=== PATIENT | male | born 1995 | race Two or more races ===

== ENCOUNTER 2019-02-15 19:18 | Inpatient (IN) | payer OTHER, SELFPAY ==
[~2019-02-15] VITALS: Ht 172.7 cm; Wt 92.4 kg
[2019-02-15] MEDS ORDERED: SODIUM CHLORIDE 0.9% 1,000 ML IV ONE ×2 (19:52→21:04)
[2019-02-15] MEDS ORDERED: LORazepam 2 MG/ML, 1ML IVPush PRN (20:00)
[2019-02-15] MEDS ORDERED: SODIUM CHLORIDE 0.9% 1,000ML IVBOLUS ONE (20:00)
[2019-02-15] MEDS ORDERED: ONDANSETRON 2MG/ML, 2ML IVPush ONE (20:00)
[2019-02-15] MEDS ORDERED: SODIUM CHLORIDE FLUSH 10ML SYR IVF ONE (20:00)
--- NOTE | 2019-02-15 20:02 | NUR ---
THIS IS A 23 Y/O MALE WHO ARRIVES TO THE ED WITH C/O OF SEVRE ABD PAIN AND BLEEDING FROM RECTUM AND IN EPISODES OF EMESIS. PT DENIES TRUAMA. PT DOES REPORT HEAVY DRINKING AND TAKING AT LEAST 1 PINT MINIMUM. PT ON ARRIVAL HAD PIV PLACED AND CONNECTED TO MONITORS AND CALL LIGHT IN REACH. PT HAS NO DT SIGNS AT THIS TIME. AWAITING FURTHER ORDERS. IVF BOLUS GOING.
[2019-02-15 20:30] LABS: BASOPHILS # (AUTO) 0.02 x10^3/uL (0-0.1); BASOPHILS % (AUTO) 0 % (0-1); EOSINOPHILS % (AUTO) 1 % (1-7); LYMPHOCYTES # (AUTO) 2.58 x10^3/uL (1-3.4); LYMPHOCYTES % (AUTO) 29 % (22-44); MD NO; MEAN CORPUSCULAR HEMOGLOBIN 31.6 pg (27.5-34.5); MEAN CORPUSCULAR VOLUME 93.1 fL (81-97); MEAN PLATELET VOLUME 8.3 fL (7.4-10.4); MONOCYTES % (AUTO) 7 % (2-9); NEUTROPHILS # (AUTO) 5.74 x10^3/uL (1.8-6.8); NEUTROPHILS % (AUTO) 63 % (42-75); PLATELET COUNT 305 x10^3/uL (130-400); RED BLOOD COUNT 4.99 x10^6/uL (4.38-5.82); RED CELL DISTRIBUTION WIDTH 14.6 % (9.4-14.8)
[2019-02-15 20:38] LABS: ALANINE AMINOTRANSFERASE 202 U/L (12-78); ALBUMIN 4.1 g/dL (3.4-5.0); ANION GAP 12 mmol/L (5-15); CALCIUM 8.9 mg/dL (8.5-10.1); CHLORIDE 108 mmol/L (98-107); CREATININE 0.95 mg/dL (0.7-1.3)
[2019-02-15 20:41] LABS: ALKALINE PHOSPHATASE 89 U/L (45-117); BILIRUBIN,TOTAL 0.7 mg/dL (0.2-1.0); TOTAL PROTEIN 8.5 g/dL (6.4-8.2)
[2019-02-15] MEDS ORDERED: LORazepam 2 MG/ML, 1ML ONE (20:41)
[2019-02-15] MEDS ORDERED: ONDANSETRON 2MG/ML, 2ML ONE (20:41)
[2019-02-15] MEDS ORDERED: SODIUM CHLORIDE FLUSH 10ML SYR IVF PRN (21:30)
--- NOTE | 2019-02-15 21:32 | NUR ---
REPORT TO WILFRIDO
[2019-02-15 21:58] VITALS: BP 123/86
[2019-02-16] MEDS ORDERED: MVI ADULT 10 ML, FOLIC ACID 1 MG in D5%-0.45% NACL 1,000 ML IV SCH ×2 (00:15→11:30)
[2019-02-16] MEDS ORDERED: ONDANSETRON 2MG/ML, 2ML IV PRN (00:30)
[2019-02-16] MEDS ORDERED: ALUMINUM/MAG/SIMETHICONE 30 ML UDC PO PRN (00:30)
[2019-02-16] MEDS ORDERED: LORazepam 2 MG/ML, 1ML IV PRN ×4 (00:30)
[2019-02-16 02:50] VITALS: BP 129/88
[2019-02-16 06:47] VITALS: BP 143/83
[2019-02-16] MEDS: MULTIVITAMINS/MINERALS TABLET PO SCH (08:20)
[2019-02-16] MEDS: LORazepam 2 MG/ML, 1ML IV PRN ×2 (10:14→20:03)
[2019-02-16 12:31] VITALS: BP 126/80
[2019-02-16] MEDS: THIAMINE 100MG TABLET PO SCH (12:38)
[2019-02-16 13:21] LABS: BASOPHILS # (AUTO) 0.06 x10^3/uL (0-0.1); BASOPHILS % (AUTO) 1 % (0-1); EOSINOPHILS % (AUTO) 1 % (1-7); LYMPHOCYTES # (AUTO) 2.47 x10^3/uL (1-3.4); LYMPHOCYTES % (AUTO) 29 % (22-44); MD NO; MEAN CORPUSCULAR HEMOGLOBIN 30.7 pg (27.5-34.5); MEAN CORPUSCULAR HGB CONC 33.8 g/dL (33.2-36.2); MEAN CORPUSCULAR VOLUME 90.8 fL (81-97); MEAN PLATELET VOLUME 7.2 fL (7.4-10.4); MONOCYTES % (AUTO) 8 % (2-9); NEUTROPHILS # (AUTO) 5.29 x10^3/uL (1.8-6.8); NEUTROPHILS % (AUTO) 61 % (42-75); PLATELET COUNT 253 x10^3/uL (130-400); RED BLOOD COUNT 4.51 x10^6/uL (4.38-5.82); RED CELL DISTRIBUTION WIDTH 13.8 % (9.4-14.8)
[2019-02-16] MEDS: D5%-0.9% NACL 1,000 ML IV SCH ×2 (13:25→21:43)
[2019-02-16 13:33] LABS: ALANINE AMINOTRANSFERASE 168 U/L (12-78); ALBUMIN 3.5 g/dL (3.4-5.0); ANION GAP 10 mmol/L (5-15); CHLORIDE 106 mmol/L (98-107); CREATININE 0.87 mg/dL (0.7-1.3)
[2019-02-16 13:35] LABS: ALKALINE PHOSPHATASE 78 U/L (45-117); BILIRUBIN,TOTAL 1.2 mg/dL (0.2-1.0); TOTAL PROTEIN 7.3 g/dL (6.4-8.2)
[2019-02-16 19:36] VITALS: BP 155/91
[2019-02-17 01:47] VITALS: BP 138/89
[2019-02-17] MEDS: D5%-0.9% NACL 1,000 ML IV SCH (05:47)
[2019-02-17] MEDS ORDERED: PANTOPROZOLE 40MG TABLET PO SCH (06:00)
[2019-02-17 06:20] LABS: BASOPHILS # (AUTO) 0.04 x10^3/uL (0-0.1); BASOPHILS % (AUTO) 1 % (0-1); EOSINOPHILS # (AUTO) 0.16 x10^3/uL (0-0.4); EOSINOPHILS % (AUTO) 2 % (1-7); LYMPHOCYTES # (AUTO) 2.35 x10^3/uL (1-3.4); LYMPHOCYTES % (AUTO) 33 % (22-44); MD NO; MEAN CORPUSCULAR HGB CONC 33.8 g/dL (33.2-36.2); MEAN CORPUSCULAR VOLUME 91.8 fL (81-97); MEAN PLATELET VOLUME 7.4 fL (7.4-10.4); MONOCYTES # (AUTO) 0.72 x10^3/uL (0.2-0.8); MONOCYTES % (AUTO) 10 % (2-9); NEUTROPHILS # (AUTO) 3.94 x10^3/uL (1.8-6.8); NEUTROPHILS % (AUTO) 55 % (42-75); PLATELET COUNT 233 x10^3/uL (130-400); RED BLOOD COUNT 4.34 x10^6/uL (4.38-5.82); RED CELL DISTRIBUTION WIDTH 14.4 % (9.4-14.8)
[2019-02-17 06:30] LABS: ANION GAP 9 mmol/L (5-15); CALCIUM 8.8 mg/dL (8.5-10.1); CHLORIDE 108 mmol/L (98-107)
[2019-02-17 06:32] LABS: CREATININE 0.87 mg/dL (0.7-1.3)
[2019-02-17 07:40] VITALS: BP 125/89
[2019-02-17] MEDS: THIAMINE 100MG TABLET PO SCH (09:22)
[2019-02-17] MEDS: MULTIVITAMINS/MINERALS TABLET PO SCH (09:22)
[2019-02-17] MEDS ORDERED: POTASSIUM CHLORIDE 20 MEQ TAB.ER.PRT PO ONE (11:00)
[2019-02-17 11:57] LABS: ALBUMIN 3.3 g/dL (3.4-5.0); BILIRUBIN, DIRECT 0.3 mg/dL (0.1-0.2)
[2019-02-17 12:00] LABS: BILIRUBIN,INDIRECT 0.9 mg/dL (0.0-2.0); BILIRUBIN,TOTAL 1.2 mg/dL (0.2-1.0); TOTAL PROTEIN 6.8 g/dL (6.4-8.2)
[2019-02-17 12:55] LABS: MICROSCOPIC NOT IND
[2019-02-17 13:01] LABS: CULTURE INDICATED? NO
[2019-02-17 13:07] VITALS: BP 138/88
[2019-02-17] MEDS ORDERED: THIA100T67 PO (15:57)
[2019-02-17] MEDS ORDERED: MULT-484 PO (15:57)
[2019-02-17] MEDS ORDERED: FOLI-17 PO (15:57)
[2019-02-17] MEDS ORDERED: PANT40TA5 PO (15:57)
== END 2019-02-17 17:15 | disposition home or self-care (01) | DRG 432 ==
LOC: ED 21:37 → EDIP 21:40 → 4EST 22:00 → DCLOUNGE 02-17 17:05
PROVIDERS: ADMIT Family Medicine; ATTEND Family Medicine
DX: K70.10 Alcoholic hepatitis without ascites (principal); K85.20 Alcohol induced acute pancreatitis without necrosis or infection; F10.239 Alcohol dependence with withdrawal, unspecified; K92.0 Hematemesis; K29.20 Alcoholic gastritis without bleeding; E87.6 Hypokalemia; F10.229 Alcohol dependence with intoxication, unspecified; F12.90 Cannabis use, unspecified, uncomplicated; K76.0 Fatty (change of) liver, not elsewhere classified; Y90.8 Blood alcohol level of 240 mg/100 ml or more; Z83.3 Family history of diabetes mellitus
CPT/HCPCS: 36415; 96360; 99285; J7042; 76700; 80048; 80053; 80076; 80307; 81003; 83690; 83735; 85025; 93005; G0378; J2060; J7030

== ENCOUNTER 2021-04-05 06:32 | Inpatient (IN) | payer OTHER ==
[~2021-04-05] VITALS: Ht 170.2 cm; Wt 96.1 kg
[~2021-04-05 06:32] MED LIST: FOLI1TAB32 PO; MULT-484 PO; PANT40TA6 PO; THIA100T67 PO
--- NOTE | 2021-04-05 08:49 | NUR ---
COMMUNICATION PROFESSOR: PT TO ROOM FROM LOBBY
[2021-04-05 08:55] LABS: BASOPHILS % (AUTO) 0 % (0-1); EOSINOPHILS % (AUTO) 0 % (1-7); LYMPHOCYTES % (AUTO) 7 % (22-44); MEAN CORPUSCULAR HEMOGLOBIN 32.7 pg (27.5-34.5); MEAN CORPUSCULAR HGB CONC 34.9 g/dL (33.2-36.2); MONOCYTES % (AUTO) 6 % (2-9); NEUTROPHILS % (AUTO) 87 % (42-75); PLATELET COUNT 257 x10^3/uL (130-400); RED BLOOD COUNT 5.34 x10^6/uL (4.38-5.82); RED CELL DISTRIBUTION WIDTH 13.7 % (9.4-14.8)
[2021-04-05 09:06] LABS: ALBUMIN 3.8 g/dL (3.4-5.0); ANION GAP 22 mmol/L (5-15); CALCIUM 8.8 mg/dL (8.5-10.1); CHLORIDE 100 mmol/L (98-107)
[2021-04-05 09:11] LABS: ALANINE AMINOTRANSFERASE 137 U/L (12-78); ALKALINE PHOSPHATASE 83 U/L (45-117); BILIRUBIN,TOTAL 0.7 mg/dL (0.2-1.0); CREATININE 0.81 mg/dL (0.7-1.3); TOTAL PROTEIN 7.6 g/dL (6.4-8.2)
[2021-04-05] MEDS ORDERED: MORPHINE SULFATE 4 MG/ML, 1ML ONE ×2 (09:14→10:04)
[2021-04-05] MEDS ORDERED: MAALOX/HYOSCYAMINE/LIDOCAINE 45 ML BTL ONE (09:14)
[2021-04-05] MEDS ORDERED: ONDANSETRON 2MG/ML, 2ML ONE (09:14)
[2021-04-05] MEDS: MORPHINE SULFATE 4 MG/ML, 1ML IVPush PRN ×4 (09:15→20:59)
--- NOTE | 2021-04-05 09:19 | NUR ---
IV PLACED NOTED. PT MEDICATED PER ERP FOR 10/10 ABD PAIN AND NAUSEA. VSS. CALL LIGHT IN REACH. FALL PRECAUTIONS IN PLACE. SIDE RAILS UPX2.
[2021-04-05] MEDS ORDERED: SODIUM CHLORIDE 0.9% 1,000ML IVBOLUS ONE (09:30)
[2021-04-05] MEDS ORDERED: MAALOX/HYOSCYAMINE/LIDOCAINE 45 ML BTL PO ONE (09:30)
[2021-04-05] MEDS ORDERED: SODIUM CHLORIDE FLUSH 10ML SYR IVF ONE (09:30)
[2021-04-05] MEDS ORDERED: ONDANSETRON 2MG/ML, 2ML IVPush ONE (09:30)
--- NOTE | 2021-04-05 09:30 | NUR ---
PT SLEEPING, RESP REGULAR AND UNLABORED, PULSE OX 95% RA. PT REPORTS PAIN "BETTER, MUCH MORE COMFORTABLE, STILL FEEL IT SOME." VSS. RATES PAIN 4-5/10. REFUSES NEED FOR ADDITIONAL PAIN MEDICATION AT THIS TIME. CALL LIGHT IN REACH, FALL PRECAUTIONS IN PLACE
[2021-04-05 09:35] LABS: MICROSCOPIC INDICATED
[2021-04-05] MEDS ORDERED: SODIUM CHLORIDE 0.9% 1,000 ML IV ONE (09:43)
--- NOTE | 2021-04-05 09:48 | NUR ---
LATE ENTRY 0900: ASSUMED CARE OF PT AT THIS TIME FROM [facility]. AMBULATORY TO ROOM WITH STEADY GAIT. 25 Y/O M PRESENTS STATING "WOKE UP THIS MORNING WITH SHARP CONSTANT STOMACH PAIN, THREW UP A FEW TIMES, HURTS SO BAD." DENIES CP, SOB, DIARRHEA, FEVER, CHILLS, COUGH. PT PROVIDED CLEAN CATCH UA SAMPLE IN [facility], COLLECTED AND SENT TO LAB. DR. MOLINA AT BEDSIDE FOR EVALUATION,AWAITING ORDERS. CONT PULSE OX, BP MONITORS APPLIED. VSS. CALL LIGHT IN REACH. FALL PRECAUTIONS IN PLACE. A&OX4. ASSESSMENT COMPLETED.
--- NOTE | 2021-04-05 09:59 | NUR ---
DR. MOLINA AT BEDSIDE FOR RECHECK, PT REPORTS "PAIN IS HORRIBLE AGAIN, I NEED MORE MEDICATION." TO BE ADMITTED PER ERP, PT VERBALIZED UNDERSTANDING AND AGREES TO POC.
--- NOTE | 2021-04-05 10:13 | NUR ---
PT MEDICATED NOTED IN [facility] PER ERP DR. MOLINA FOR 10 ABD PAIN. REPORTS NAUSEA RESOLVED. VSS. DENIES NEED TO USE RESTROOM. LIGHTS DIMMED FOR COMFORT PER REQUEST. FALL PRECAUTIONS AND CALL LIGHT IN REACH. AWAITING ROOM ASSIGNMENT ON FLOOR,
--- NOTE | 2021-04-05 10:30 | NUR ---
PT SLEEPING, RESP REGULAR AND UNLABORED, VERY DROWSY, AROUSES TO VOICE. REPORTS PAIN CONTROLLED "FOR NOW, IT'S GOOD, BARELY FEEL IT, CAN'T RATE IT." VSS. CALL LIGHT IN REACH. FALL PRECAUTIONS IN PLACE.
[2021-04-05] MEDS ORDERED: KETOROLAC 30 MG/1 ML ONE (10:46)
--- NOTE | 2021-04-05 10:47 | NUR ---
PT CALLING [facility]US[facility] LIGHT, REQUESTING "MORE PAIN MEDICINE, IT HELPS FOR A LITTLE BIT BUT THEN THE PAIN IS BACK, I NEED MORE MEDICINE." DISCUSSED PAIN WITH DR. MOLINA, VERBAL ORDER TO GIVE 30MG TORADOL IV ONCE PER DR. MOLINA, RBVO WITH MD. SHI. CALL LIGHT IN REACH. FALL PRECAUTIONS IN PLACE
--- NOTE | 2021-04-05 11:11 | NUR ---
THROUGHPUT RN NOTE: REPORT GIVEN TO RECEIVING RN [facility] RN IS CURRENTLY ON BREAK. PT AWAITING TRANSPORT TO MEDICAL FLOOR.
[2021-04-05] MEDS ORDERED: KETOROLAC 30 MG/1 ML IVPush ONE (11:13)
--- NOTE | 2021-04-05 11:33 | NUR ---
REPORT AND CARE BACK OF PT AT THIS TIME. PT MEDICATED NOTED IN [facility] PER DR. MOLINA FOR 10/10 PAIN IN ABD, VSS. CALL LIGHT IN REACH. FALL PRECAUTIONS IN PLACE. ROOM RECEIVED ON FLOOR, GLORIA DRIVER GAVE VERBAL REPORT. PT READY FOR TRANSPORT.
--- NOTE | 2021-04-05 12:00 | NUR ---
PT SLEEPING, RESP REGULAR AND UNLABORED. PULSE 94% RA. VSS. CALL LIGHT IN REACH. FALL PRECAUTIONS IN PLACE. AWAITING TRANSPORT TO FLOOR.
[2021-04-05] MEDS ORDERED: ONDANSETRON ODT 4 MG PO PRN (14:30)
[2021-04-05] MEDS ORDERED: POLYETHYLENE GLYCOL 17 GM PACKET PO PRN (14:30)
[2021-04-05] MEDS ORDERED: ONDANSETRON 2MG/ML, 2ML IVPush PRN (14:30)
[2021-04-05] MEDS ORDERED: DOCUSATE 100 MG CAPSULE PO PRN (14:30)
[2021-04-05] MEDS ORDERED: BISACODYL 10 MG SUPP PR PRN (14:30)
[2021-04-05] MEDS: ONDANSETRON 2MG/ML, 2ML IVPush PRN ×2 (14:35→19:54)
[2021-04-05] MEDS ORDERED: LORazepam 2 MG/ML, 1ML IV PRN ×3 (15:00)
[2021-04-05] MEDS ORDERED: THIAMINE 200 MG in DEXTROSE 5% 50 ML IVPB ONE (15:00)
[2021-04-05] MEDS ORDERED: ACETAMINOPHEN 325 MG TABLET PO PRN (15:00)
[2021-04-05] MEDS: LACTATED RINGERS 1,000 ML IV SCH (17:08)
[2021-04-05] MEDS: LORazepam 1MG TABLET PO SCH ×3 (17:08→21:54)
[2021-04-05] MEDS: ENOXAPARIN 40 MG/0.4 ML SQ SCH (17:08)
[2021-04-05] MEDS: morphine SULFATE 10 MG/ML, 1ML IVPush PRN (17:43)
[2021-04-05] MEDS: PROMETHAZINE 25 MG/ML, 1ML IM PRN (17:44)
[2021-04-05 19:19] VITALS: BP 163/116
[2021-04-05] MEDS: hydrALAzine 20 MG/ML, 1ML IVPush PRN (19:54)
[2021-04-05] MEDS ORDERED: OMNIPAQUE 350 MG/ML, 100ML BOTTLE ONE (20:00)
[2021-04-06] VITALS (11 sets, daily range): BP systolic 137–162; BP diastolic 80–119
[2021-04-06] MEDS: MORPHINE SULFATE 4 MG/ML, 1ML IVPush PRN ×5 (00:03→21:30)
[2021-04-06] MEDS: hydrALAzine 20 MG/ML, 1ML IVPush PRN ×2 (00:34→08:54)
[2021-04-06] MEDS ORDERED: HYDROmorphone 2 MG/ML, 1ML IVPush ONE (02:00)
[2021-04-06] MEDS: ONDANSETRON 2MG/ML, 2ML IVPush PRN ×3 (02:05→20:05)
[2021-04-06 04:30] LABS: BASOPHILS % (AUTO) 0 % (0-1); EOSINOPHILS % (AUTO) 0 % (1-7); LYMPHOCYTES % (AUTO) 10 % (22-44); MEAN CORPUSCULAR HEMOGLOBIN 32.8 pg (27.5-34.5); MEAN CORPUSCULAR HGB CONC 34.9 g/dL (33.2-36.2); MEAN PLATELET VOLUME 8.6 fL (7.4-10.4); MONOCYTES % (AUTO) 10 % (2-9); NEUTROPHILS % (AUTO) 80 % (42-75); PLATELET COUNT 195 x10^3/uL (130-400); RED BLOOD COUNT 5.02 x10^6/uL (4.38-5.82); RED CELL DISTRIBUTION WIDTH 13.9 % (9.4-14.8)
[2021-04-06 04:42] LABS: CHLORIDE 99 mmol/L (98-107)
[2021-04-06 04:51] LABS: ALANINE AMINOTRANSFERASE 93 U/L (12-78); ALKALINE PHOSPHATASE 62 U/L (45-117); ANION GAP 10 mmol/L (5-15); BILIRUBIN,TOTAL 1.7 mg/dL (0.2-1.0); CALCIUM 8.3 mg/dL (8.5-10.1); CHOL/HDL RATIO 3.8; CHOLESTEROL, TOTAL 155 mg/dL (140-239); CREATININE 0.86 mg/dL (0.7-1.3); HDL CHOL % 26 % (26-37); HDL CHOLESTEROL (DIRECT) 41 mg/dL (40-60); LDL CHOLESTEROL,CALCULATED 76 mg/dL (54-169); LDL/HDL RATIO 1.9 (0.5-3.0); TOTAL PROTEIN 6.8 g/dL (6.4-8.2); TRIGLYCERIDES 190 mg/dL (50-200); VLDL CHOLESTEROL 38 mg/dL (0-25)
[2021-04-06] MEDS: LACTATED RINGERS 1,000 ML IV SCH (05:59)
[2021-04-06] MEDS: LORazepam 1MG TABLET PO SCH ×4 (05:59→20:05)
[2021-04-06] MEDS ORDERED: MAGNESIUM SULFATE IV ONE (08:30)
[2021-04-06] MEDS ORDERED: SODIUM CHLORIDE 0.9% IV ONE (08:30)
[2021-04-06] MEDS ORDERED: POTASSIUM CHLORIDE IV ONE (08:30)
[2021-04-06] MEDS ORDERED: MAGNESIUM SULFATE PMX 4GM/100M 100 ML IVPB ONE (08:30)
[2021-04-06] MEDS: PANTOPRAZOLE 40 MG IV IVPush SCH (08:52)
[2021-04-06] MEDS: LORazepam 2 MG/ML, 1ML IV PRN (10:33)
[2021-04-06] MEDS ORDERED: CHLORDIAZEPOXIDE 25 MG CAPSULE PO PRN (11:00)
[2021-04-06] MEDS ORDERED: CHLORDIAZEPOXIDE 25 MG CAPSULE PO SCH (11:00)
[2021-04-06 11:27] LABS: O2 FLOW 4L L/min
[2021-04-06] MEDS ORDERED: SODIUM CHLORIDE 0.9% 1,000 ML IV SCH ×2 (12:30)
[2021-04-06] MEDS ORDERED: SODIUM CHLORIDE 0.9% 1,000ML IVBOLUS ONE ×2 (13:30→15:30)
[2021-04-06] MEDS: PIPERACILLIN/TAZO 3.375 GM in DEXTROSE 5% 50 ML IV SCH ×2 (14:12→19:49)
[2021-04-06] MEDS: PROMETHAZINE 25 MG/ML, 1ML IM PRN (14:25)
[2021-04-06] MEDS ORDERED: ACETAMINOPHEN 650 MG SUPP PR PRN (14:30)
[2021-04-06] MEDS: ENOXAPARIN 40 MG/0.4 ML SQ SCH (15:24)
[2021-04-06] MEDS ORDERED: METOPROLOL 1 MG/ML, 5ML IVPush ONE (16:30)
[2021-04-06 20:32] LABS: MICROSCOPIC NOT IND
[2021-04-06] MEDS: ACETAMINOPHEN 325 MG TABLET PO PRN (21:29)
[2021-04-07] MEDS: PROMETHAZINE 25 MG/ML, 1ML IM PRN ×4 (00:26→22:43)
[2021-04-07] MEDS: LORazepam 2 MG/ML, 1ML IV PRN ×4 (00:26→19:34)
[2021-04-07 01:35] VITALS: BP 160/99
[2021-04-07] MEDS: PIPERACILLIN/TAZO 3.375 GM in DEXTROSE 5% 50 ML IV SCH ×4 (02:23→19:33)
[2021-04-07] MEDS: ONDANSETRON 2MG/ML, 2ML IVPush PRN ×3 (02:24→12:39)
[2021-04-07] MEDS: MORPHINE SULFATE 4 MG/ML, 1ML IVPush PRN ×6 (02:24→22:37)
[2021-04-07 05:13] LABS: HCT (SEDRATE) 40.6 % (39.2-51.8)
[2021-04-07 05:16] LABS: ANION GAP 5 mmol/L (5-15); CHLORIDE 102 mmol/L (98-107)
[2021-04-07 05:17] LABS: MEAN CORPUSCULAR HEMOGLOBIN 32.7 pg (27.5-34.5); MEAN CORPUSCULAR HGB CONC 34.8 g/dL (33.2-36.2); MEAN PLATELET VOLUME 8.4 fL (7.4-10.4); PLATELET COUNT 116 x10^3/uL (130-400); RED BLOOD COUNT 4.27 x10^6/uL (4.38-5.82); RED CELL DISTRIBUTION WIDTH 13.4 % (9.4-14.8)
[2021-04-07 05:31] LABS: ALANINE AMINOTRANSFERASE 58 U/L (12-78); ALBUMIN 2.4 g/dL (3.4-5.0); ALKALINE PHOSPHATASE 49 U/L (45-117); CALCIUM 8.1 mg/dL (8.5-10.1); CREATININE 0.69 mg/dL (0.7-1.3); TOTAL PROTEIN 5.8 g/dL (6.4-8.2)
[2021-04-07] MEDS: LORazepam 1MG TABLET PO SCH ×2 (06:04→12:19)
[2021-04-07 06:09] LABS: <PLATELET ESTIMATE> DECREASED; <PLT MORPHOLOGY> NORMAL PLT MORPH; <RBC MORPHOLOGY> NORMAL; BAND#(MANUAL) 0.61 x10^3/uL; BANDS%(MANUAL) 7 % (0-7); BASOS#(MANUAL) 0.09 x10^3/uL (0-0.1); BASOS% (MANUAL) 1 % (0-1); EOS#(MANUAL) 0.09 x10^3/uL (0.0-0.4); EOS% (MANUAL) 1 % (1-7); LYMPH#(MANUAL) 1.48 x10^3/uL (1-3.4); LYMPHS% (MANUAL) 17 % (22-44); MONOS#(MANUAL) 0.87 x10^3/uL (0.3-2.7); MONOS% (MANUAL) 10 % (2-9); REACTIVE LYMPHS # (MANUAL) 0.09 x10^3/uL (0-0); REACTIVE LYMPHS % (MANUAL) 1 % (0-0); SEG#(MANUAL) 5.48 x10^3/uL (1.8-6.8); SEGS% (MANUAL) 63 % (42-75)
[2021-04-07 06:37] VITALS: BP 164/112
[2021-04-07] MEDS: PANTOPRAZOLE 40 MG IV IVPush SCH (07:52)
[2021-04-07] MEDS ORDERED: POTASSIUM CHLORIDE 40 MEQ in SODIUM CHLORIDE 0.9% 500 ML IV ONE (10:00)
[2021-04-07 12:14] VITALS: BP 150/111
[2021-04-07] MEDS ORDERED: LACTATED RINGERS 1,000 ML IV SCH (14:30)
[2021-04-07] MEDS: CHLORDIAZEPOXIDE 5 MG CAPSULE PO SCH ×3 (15:12→19:24)
[2021-04-07] MEDS: ENOXAPARIN 40 MG/0.4 ML SQ SCH (15:14)
[2021-04-07 19:37] VITALS: BP 149/93
[2021-04-08] MEDS: MORPHINE SULFATE 4 MG/ML, 1ML IVPush PRN ×7 (00:54→21:17)
[2021-04-08] MEDS: PIPERACILLIN/TAZO 3.375 GM in DEXTROSE 5% 50 ML IV SCH ×4 (00:54→19:55)
[2021-04-08 01:18] VITALS: BP 146/96
[2021-04-08] MEDS: PROMETHAZINE 25 MG/ML, 1ML IM PRN (02:38)
[2021-04-08] MEDS: CHLORDIAZEPOXIDE 5 MG CAPSULE PO SCH ×4 (05:47→19:54)
[2021-04-08] MEDS: ONDANSETRON 2MG/ML, 2ML IVPush PRN ×3 (06:36→21:38)
[2021-04-08 06:39] LABS: BASOPHILS % (AUTO) 1 % (0-1); EOSINOPHILS % (AUTO) 3 % (1-7); LYMPHOCYTES % (AUTO) 18 % (22-44); MEAN CORPUSCULAR HEMOGLOBIN 32.4 pg (27.5-34.5); MEAN CORPUSCULAR HGB CONC 34.3 g/dL (33.2-36.2); MEAN PLATELET VOLUME 8.4 fL (7.4-10.4); MONOCYTES % (AUTO) 11 % (2-9); NEUTROPHILS % (AUTO) 66 % (42-75); PLATELET COUNT 127 x10^3/uL (130-400); RED BLOOD COUNT 4.18 x10^6/uL (4.38-5.82); RED CELL DISTRIBUTION WIDTH 13.2 % (9.4-14.8)
[2021-04-08 06:48] LABS: ALBUMIN 2.7 g/dL (3.4-5.0); ANION GAP 9 mmol/L (5-15); CALCIUM 8.8 mg/dL (8.5-10.1); CHLORIDE 101 mmol/L (98-107)
[2021-04-08 07:01] LABS: ALANINE AMINOTRANSFERASE 51 U/L (12-78); ALKALINE PHOSPHATASE 58 U/L (45-117); BILIRUBIN,TOTAL 1.6 mg/dL (0.2-1.0); CREATININE 0.74 mg/dL (0.7-1.3); TOTAL PROTEIN 6.6 g/dL (6.4-8.2)
[2021-04-08 07:10] VITALS: BP 130/90
[2021-04-08] MEDS: PANTOPRAZOLE 40 MG IV IVPush SCH (08:04)
[2021-04-08 08:31] LABS: HCT (SEDRATE) 39.5 % (39.2-51.8)
[2021-04-08] MEDS ORDERED: CHLORDIAZEPOXIDE 5 MG CAPSULE PO PRN (09:30)
[2021-04-08 13:28] VITALS: BP 143/100
[2021-04-08] MEDS: hydrALAzine 20 MG/ML, 1ML IVPush PRN (14:00)
[2021-04-08] MEDS: ENOXAPARIN 40 MG/0.4 ML SQ SCH (14:00)
[2021-04-08] MEDS ORDERED: OMNIPAQUE 350 MG/ML, 100ML BOTTLE ONE (16:00)
[2021-04-08 16:16] VITALS: BP 137/95
[2021-04-08 19:56] VITALS: BP 154/109
[2021-04-09] MEDS: MORPHINE SULFATE 4 MG/ML, 1ML IVPush PRN ×4 (00:27→13:14)
[2021-04-09] MEDS: MELATONIN 5 MG TABLET PO PRN ×2 (00:36→21:23)
[2021-04-09 00:45] VITALS: BP 141/89
[2021-04-09] MEDS: PIPERACILLIN/TAZO 3.375 GM in DEXTROSE 5% 50 ML IV SCH ×2 (02:18→09:57)
[2021-04-09] MEDS: ONDANSETRON 2MG/ML, 2ML IVPush PRN ×2 (03:46→13:22)
[2021-04-09 05:45] LABS: BASOPHILS % (AUTO) 1 % (0-1); EOSINOPHILS % (AUTO) 5 % (1-7); LYMPHOCYTES % (AUTO) 19 % (22-44); MEAN CORPUSCULAR HGB CONC 34.9 g/dL (33.2-36.2); MEAN PLATELET VOLUME 8.5 fL (7.4-10.4); MONOCYTES % (AUTO) 14 % (2-9); NEUTROPHILS % (AUTO) 62 % (42-75); PLATELET COUNT 169 x10^3/uL (130-400); RED BLOOD COUNT 4.12 x10^6/uL (4.38-5.82); RED CELL DISTRIBUTION WIDTH 12.9 % (9.4-14.8)
[2021-04-09 05:58] LABS: ANION GAP 6 mmol/L (5-15); CHLORIDE 99 mmol/L (98-107)
[2021-04-09 06:11] LABS: ALANINE AMINOTRANSFERASE 48 U/L (12-78); ALBUMIN 2.6 g/dL (3.4-5.0); ALKALINE PHOSPHATASE 61 U/L (45-117); BILIRUBIN,TOTAL 1.2 mg/dL (0.2-1.0); CALCIUM 8.9 mg/dL (8.5-10.1); CREATININE 0.64 mg/dL (0.7-1.3); TOTAL PROTEIN 6.5 g/dL (6.4-8.2)
[2021-04-09] MEDS: CHLORDIAZEPOXIDE 5 MG CAPSULE PO SCH ×4 (06:31→20:51)
[2021-04-09 07:28] VITALS: BP 145/96
[2021-04-09] MEDS: PANTOPRAZOLE 40 MG IV IVPush SCH (09:10)
[2021-04-09] MEDS: LORazepam 2 MG/ML, 1ML IV PRN (09:10)
[2021-04-09] MEDS: morphine SULFATE 10 MG/ML, 1ML IVPush PRN ×3 (09:57→20:51)
[2021-04-09] MEDS: ENOXAPARIN 40 MG/0.4 ML SQ SCH (13:15)
[2021-04-09 13:41] VITALS: BP 138/76
[2021-04-09] MEDS: LACTATED RINGERS 1,000 ML IV SCH ×2 (15:16→22:33)
[2021-04-09] MEDS: MEROPENEM 1 GM in SODIUM CHLORIDE 0.9% 100 ML IV SCH ×2 (15:49→23:24)
[2021-04-09 19:44] VITALS: BP 143/97
[2021-04-10] MEDS: morphine SULFATE 10 MG/ML, 1ML IVPush PRN ×4 (00:39→23:49)
[2021-04-10 00:40] VITALS: BP 138/89
[2021-04-10] MEDS: LORazepam 2 MG/ML, 1ML IV PRN ×2 (00:48→23:49)
[2021-04-10 04:41] LABS: HCT (SEDRATE) 38.8 % (39.2-51.8)
[2021-04-10 04:42] LABS: BASOPHILS % (AUTO) 1 % (0-1); EOSINOPHILS % (AUTO) 5 % (1-7); LYMPHOCYTES % (AUTO) 19 % (22-44); MEAN CORPUSCULAR HEMOGLOBIN 32.9 pg (27.5-34.5); MEAN PLATELET VOLUME 8.3 fL (7.4-10.4); MONOCYTES % (AUTO) 18 % (2-9); NEUTROPHILS % (AUTO) 58 % (42-75); PLATELET COUNT 201 x10^3/uL (130-400); RED BLOOD COUNT 4.14 x10^6/uL (4.38-5.82); RED CELL DISTRIBUTION WIDTH 13.1 % (9.4-14.8)
[2021-04-10 04:49] LABS: INTERNATIONAL NORMALIZED RATIO 1.11 (0.93-1.1); PROTHROMBIN TIME 11.8 Seconds (9.6-11.5)
[2021-04-10 04:50] LABS: ALANINE AMINOTRANSFERASE 48 U/L (12-78); ALBUMIN 2.7 g/dL (3.4-5.0); ANION GAP 6 mmol/L (5-15); CALCIUM 8.8 mg/dL (8.5-10.1); CHLORIDE 103 mmol/L (98-107); CREATININE 0.63 mg/dL (0.7-1.3)
[2021-04-10 04:59] LABS: ALKALINE PHOSPHATASE 73 U/L (45-117); BILIRUBIN,TOTAL 0.9 mg/dL (0.2-1.0); TOTAL PROTEIN 6.5 g/dL (6.4-8.2)
[2021-04-10] MEDS: LACTATED RINGERS 1,000 ML IV SCH ×4 (05:35→23:53)
[2021-04-10 07:31] VITALS: BP 129/87
[2021-04-10] MEDS: PANTOPRAZOLE 40 MG IV IVPush SCH (07:51)
[2021-04-10] MEDS: MORPHINE SULFATE 4 MG/ML, 1ML IVPush PRN ×2 (07:52→12:51)
[2021-04-10] MEDS: CHLORDIAZEPOXIDE 5 MG CAPSULE PO SCH ×5 (07:52→22:00)
[2021-04-10] MEDS: MEROPENEM 1 GM in SODIUM CHLORIDE 0.9% 100 ML IV SCH ×2 (07:53→16:47)
[2021-04-10] MEDS: ONDANSETRON 2MG/ML, 2ML IVPush PRN (08:13)
[2021-04-10] MEDS: ACETAMINOPHEN 325 MG TABLET PO PRN (12:23)
[2021-04-10] MEDS: ENOXAPARIN 40 MG/0.4 ML SQ SCH (14:22)
[2021-04-10 14:23] VITALS: BP 128/89
[2021-04-10 16:17] LABS: BASOPHILS % (AUTO) 1 % (0-1); EOSINOPHILS % (AUTO) 5 % (1-7); LYMPHOCYTES % (AUTO) 24 % (22-44); MEAN CORPUSCULAR HEMOGLOBIN 32.4 pg (27.5-34.5); MEAN CORPUSCULAR HGB CONC 34.3 g/dL (33.2-36.2); MEAN PLATELET VOLUME 7.8 fL (7.4-10.4); MONOCYTES % (AUTO) 15 % (2-9); NEUTROPHILS % (AUTO) 55 % (42-75); PLATELET COUNT 251 x10^3/uL (130-400); RED BLOOD COUNT 4.46 x10^6/uL (4.38-5.82); RED CELL DISTRIBUTION WIDTH 13.2 % (9.4-14.8)
[2021-04-10 16:25] LABS: ALANINE AMINOTRANSFERASE 73 U/L (12-78); ANION GAP 6 mmol/L (5-15); CHLORIDE 103 mmol/L (98-107); CREATININE 0.62 mg/dL (0.7-1.3)
[2021-04-10 16:26] LABS: ALKALINE PHOSPHATASE 82 U/L (45-117); BILIRUBIN,TOTAL 0.8 mg/dL (0.2-1.0); TOTAL PROTEIN 7.5 g/dL (6.4-8.2)
[2021-04-10 20:27] VITALS: BP 135/99
[2021-04-10] MEDS: MELATONIN 5 MG TABLET PO PRN (23:49)
[2021-04-11] MEDS: MEROPENEM 1 GM in SODIUM CHLORIDE 0.9% 100 ML IV SCH ×2 (00:15→07:51)
[2021-04-11] MEDS ORDERED: ONDANSETRON 4 MG TABLET ONE (02:02)
[2021-04-11 02:39] VITALS: BP 130/93
[2021-04-11] MEDS: ONDANSETRON 2MG/ML, 2ML IVPush PRN (04:51)
[2021-04-11] MEDS: ACETAMINOPHEN 325 MG TABLET PO PRN (04:56)
[2021-04-11 06:03] LABS: BASOPHILS % (AUTO) 1 % (0-1); EOSINOPHILS % (AUTO) 4 % (1-7); LYMPHOCYTES % (AUTO) 23 % (22-44); MEAN CORPUSCULAR HEMOGLOBIN 32.9 pg (27.5-34.5); MEAN PLATELET VOLUME 8.2 fL (7.4-10.4); MONOCYTES % (AUTO) 17 % (2-9); NEUTROPHILS % (AUTO) 55 % (42-75); PLATELET COUNT 259 x10^3/uL (130-400); RED BLOOD COUNT 4.16 x10^6/uL (4.38-5.82); RED CELL DISTRIBUTION WIDTH 13.1 % (9.4-14.8)
[2021-04-11] MEDS: LACTATED RINGERS 1,000 ML IV SCH ×2 (06:05→10:00)
[2021-04-11 06:10] LABS: ANION GAP 8 mmol/L (5-15); CALCIUM 8.8 mg/dL (8.5-10.1); CHLORIDE 105 mmol/L (98-107); CREATININE 0.65 mg/dL (0.7-1.3)
[2021-04-11 06:24] VITALS: BP 131/97
[2021-04-11] MEDS: CHLORDIAZEPOXIDE 5 MG CAPSULE PO SCH (07:50)
[2021-04-11] MEDS: PANTOPRAZOLE 40 MG IV IVPush SCH (07:51)
[2021-04-11] MEDS ORDERED: CIPR500T4 PO (08:22)
[2021-04-11] MEDS ORDERED: METR500T PO (08:22)
== END 2021-04-11 10:57 | disposition home or self-care (01) | DRG 439 ==
LOC: ED 09:30 → EDIP 10:00 → ED 10:04 → 3N 12:40 → 5SO 04-06 12:11 → ICU 04-09 11:18
PROVIDERS: ADMIT Emergency Medicine; ATTEND Internal Medicine
DX: K85.00 Idiopathic acute pancreatitis without necrosis or infection (principal); R65.10 Systemic inflammatory response syndrome (SIRS) of non-infectious origin without acute organ dysfunction; E87.1 Hypo-osmolality and hyponatremia; E86.0 Dehydration; E87.6 Hypokalemia; F10.20 Alcohol dependence, uncomplicated; K70.11 Alcoholic hepatitis with ascites; Z83.3 Family history of diabetes mellitus; Z79.899 Other long term (current) drug therapy
CPT/HCPCS: 36415; 36600; 71045; 71046; 74018; 74170; 74178; 76700; 80048; 80053; 80061; 80074; 81001; 81003; 82803; 83036; 83605; 83690; 83735; 84100; 84145; 84443; 85025; 85610; 85651; 86140; 87040; 96361; 96374; 96375; 96376; 99285; G0378; J1170; J1650; J1885; J2185; J2405; J2543; J2550; J3411; J3475; J3480; Q9967; C9113; J0360; J2060; J2270; J7030; J7040; J7120